=== PATIENT | female | born 2000 | race Caucasian/White ===

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

== ENCOUNTER 2020-10-07 08:00 | Emergency (ER) | payer OTHER ==
[2020-10-07] MEDS ORDERED: KETOROLAC TROMETHAMINE INJ 30 MG/ML VIAL IV ONE (08:23)
[2020-10-07] MEDS ORDERED: SODIUM CHLORIDE 0.9% (FLUSH) 10 ML SYG IV PRN (08:23)
[2020-10-07] MEDS ORDERED: ONDANSETRON INJ 4 MG/2 ML VIAL IV ONE (08:23)
[2020-10-07] MEDS ORDERED: SODIUM CHLORIDE 0.9% 1000ML 1,000 ML IVS ONE (08:23)
--- NOTE | 2020-10-07 08:53 | ED.PDOC ---
History of Present Illness - General Chief Complaint: Abdominal Pain Stated Complaint: RLQ abdominal pain Time Seen by Provider: 10/07/20 08:23 Source: patient, RN notes reviewed, Vital Signs reviewed Exam Limitations: no limitations - History of Present Illness Initial Comments: Patient is a 20-year-old white female who presents with complaints of right lower quadrant pain that started last night. Pain is sharp and throbbing. Moderate intensity. Worse with movement or palpation. Better with resting supine. No radiation of the pain. Timing/Duration: other - 12 hrs Severity: moderate Improving Factors: rest Worsening Factors: movement, other - palpation Associated Symptoms: denies symptoms Allergies/Adverse Reactions: Allergies NO KNOWN ALLERGY Allergy (Verified 10/07/20 09:13) Home Medications: Ambulatory Orders Etonogestrel-Ethinyl Estradiol [Nuvaring] 1 mis [place] MONTHLY 03/29/19 Cyclobenzaprine HCl [Flexeril] 10 mg PO TID PRN #20 tab 06/09/19 Ketorolac Tromethamine [Toradol Tabs] 10 mg PO Q6HRS PRN #16 tab 06/09/19 Cephalexin Monohydrate [Keflex] 500 mg PO BID #10 cap 07/03/19 Ondansetron [Ondansetron Odt] 4 mg PO Q6H #12 tab 10/07/20 Review of Systems - Review of Systems Constitutional: States: no symptoms reported, see HPI. Denies: chills, fever, malaise, weakness EENTM: States: no symptoms reported. Denies: eye pain, blurred vision, double vision Respiratory: States: no symptoms reported. Denies: cough, short of breath, stridor, wheezing Cardiology: States: no symptoms reported. Denies: chest pain, palpitations, syncope Gastrointestinal/Abdominal: States: see HPI, abdominal pain, nausea. Denies: diarrhea, vomiting Genitourinary: States: no symptoms reported. Denies: discharge, dysuria, frequency Musculoskeletal: States: no symptoms reported. Denies: back pain, joint pain, joint swelling, neck pain Skin: States: no symptoms reported. Denies: change in color, rash Neurological: States: no symptoms reported. Denies: tingling, tremors, weakness Endocrine: States: no symptoms reported. Denies: increased hunger, increased thirst, increased urine Hematologic/Lymphatic: States: no symptoms reported. Denies: blood clots, easy bleeding All other Systems: Reviewed and Negative Past Medical History (General) - Patient Medical History Hx Stroke: No Hx Dementia: No Hx Asthma: No Hx of COPD: No Hx Cardiac Disorders: No Hx Congestive Heart Failure: No Hx Hypertension: No Hx Thyroid Disease: No Hx Diabetes: No Hx Cancer: No - Vaccination History Hx Tetanus, Diphtheria Vaccination: No Hx Influenza Vaccination: No Hx Pneumococcal Vaccination: No - Social History Hx Tobacco Use: No - Vapes Hx Alcohol Use: Yes - socially Hx Substance Use: No Hx Substance Use Treatment: No Hx Depression: No - Female History Patient : No Family Medical History - Family History Mother Family History: Unknown Father Grandparents Hx Family Diabetes: Yes - Type II Physical Exam - Physical Exam General Appearance: Alert, Anxious, Well Developed, Well Groomed, Well Hydrated, Well Nourished Eye Exam: bilateral normal Ears, Nose, Throat: hearing grossly normal, normal ENT inspection, normal pharynx Neck: non-tender, full range of motion, supple Respiratory: chest non-tender, lungs clear, normal breath sounds, no respiratory distress Cardiovascular/Chest: normal peripheral pulses, regular rate, rhythm, no edema, no gallop, no JVD, no murmur Peripheral Pulses: radial,right: 2+, radial,left: 2+ Gastrointestinal/Abdominal: normal bowel sounds, soft, tenderness - RLQ Back Exam: normal inspection, no CVA tenderness, no vertebral tenderness Extremity: normal range of motion, non-tender, normal inspection, no pedal edema, no calf tenderness 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 10/07/20 11:29 Patient is improved while here. She is tolerating p.o. CT scan does not show any appendicitis or kidney stones. Labs are unremarkable and do not show any sign of infection. Plan on discharge home with follow-up with PCP. Have recommended patient take the day off from work and rest and drink plenty of fluids. I discussed the plan of care with the patient she voices understanding and agreement. Slava Cooley M.D. #[id number] - Results/Orders Results/Orders: EKG performed 07 October 2020 at 0841 hrs.: Sinus rhythm with marked sinus arrhythmia at 67 bpm, normal axis deviation, no ST or T wave depression concerning for ischemia, otherwise normal EKG. 10/07/20 08:23 Hold Metformin x 48Hrs [id number] Sodium Chloride 0.9% (Flush) [Saline Flush Syringe] 10 ml IV PRN PRN 10/07/20 08:30 EKG STAT Laboratory Results - last 24 hr 10/07/20 10/07/20 10/07/20 08:30 08:30 08:30 WBC 6.6 RBC 4.53 Hgb 13.3 Hct 39.3 MCV 86.7 MCH 29.4 MCHC 33.9 RDW 12.7 Plt Count 243 MPV 9.5 Absolute Neuts (auto) 3.70 Absolute Lymphs (auto) 2.10 Absolute Monos (auto) 0.50 Absolute Eos (auto) 0.20 Absolute Basos (auto) 0.10 Neutrophils % 56.7 Lymphocytes % 31.7 Monocytes % 7.2 Eosinophils % 3.1 Basophils % 1.3 Sodium 139 Potassium 4.0 Chloride 107 Carbon Dioxide 23 Anion Gap 13.0 BUN 17 Creatinine 0.64 BUN/Creatinine Ratio 26.6 H Random Glucose 101 Serum Osmolality 279.2 Calcium 8.5 Total Bilirubin 0.6 Direct Bilirubin 0.1 Indirect Bilirubin 0.5 AST 14 ALT 17 Alkaline Phosphatase 43 L Serum Total Protein 7.4 Albumin 3.8 Lipase 31 Serum HCG, Qual Negative Urine Color Urine Appearance Urine pH Ur Specific [place] Urine Protein Urine Glucose (UA) Urine Ketones Urine Blood Urine Nitrite Urine Bilirubin Urine Urobilinogen Ur Leukocyte Esterase Urine RBC Urine WBC Ur Epithelial Cells Urine Bacteria 10/07/20 10:15 WBC RBC Hgb Hct MCV MCH MCHC RDW Plt Count MPV Absolute Neuts (auto) Absolute Lymphs (auto) Absolute Monos (auto) Absolute Eos (auto) Absolute Basos (auto) Neutrophils % Lymphocytes % Monocytes % Eosinophils % Basophils % Sodium Potassium Chloride Carbon Dioxide Anion Gap BUN Creatinine BUN/Creatinine Ratio Random Glucose Serum Osmolality Calcium Total Bilirubin Direct Bilirubin Indirect Bilirubin AST ALT Alkaline Phosphatase Serum Total Protein Albumin Lipase Serum HCG, Qual Urine Color Yellow Urine Appearance Clear Urine pH 6.0 Ur Specific [place] 1.015 Urine Protein Negative Urine Glucose (UA) Negative Urine Ketones Negative Urine Blood Negative Urine Nitrite Negative Urine Bilirubin Negative Urine Urobilinogen 0.2 Ur Leukocyte Esterase Negative Urine RBC 0 Urine WBC 0-1 Ur Epithelial Cells 0-1 Urine Bacteria 0 Vital Signs 10/07/20 10/07/20 10/07/20 08:15 08:23 10:43 Temperature 97.7 F Pulse Rate [ 83 83 68 Pulse ox] Respiratory 18 18 16 Rate Blood Pressure 140/89 110/76 [L arm] O2 Sat by Pulse 98 98 Oximetry Departure - Departure Clinical Impression: Abdominal pain Qualifiers: Abdominal location: right lower quadrant Qualified Code(s): R10.31 - Right lower quadrant pain Time of Disposition: Disposition: Discharge to Home or Self Care Condition: Good Departure Forms: ED Discharge - Pt. Copy, Patient Portal Self Enrollment Instructions: DI for Abdominal Pain-Adult, Acute Abdomen (Belly Pain), Adult (DC) Diet: full liquid diet Activity: increase activity as tolerated Prescriptions: Ondansetron [Ondansetron Odt] 4 mg PO Q6H #12 tab Home Medications: Ambulatory Orders Etonogestrel-Ethinyl Estradiol [Nuvaring] 1 mis [place] MONTHLY 03/29/19 Cyclobenzaprine HCl [Flexeril] 10 mg PO TID PRN #20 tab 06/09/19 Ketorolac Tromethamine [Toradol Tabs] 10 mg PO Q6HRS PRN #16 tab 06/09/19 Cephalexin Monohydrate [Keflex] 500 mg PO BID #10 cap 07/03/19 Ondansetron [Ondansetron Odt] 4 mg PO Q6H #12 tab 10/07/20
[2020-10-07 09:13] VITALS: TEMP 97.7; O2SAT 98
--- NOTE | 2020-10-07 09:53 | CT ---
EXAM DESCRIPTION: Abdomen/Pelvis w/Contrast CLINICAL HISTORY: 20 years Female, RLQ pain COMPARISON: 03 July 2019 TECHNIQUE: Transaxial images were obtained with intravenous contrast medium without oral contrast media. Sagittal and coronal reconstruction was performed.This exam was performed according to our departmental dose-optimization program, which includes automated exposure control, adjustment of the mA and/or kV according to patient size and/or use of iterative reconstruction technique. FINDINGS: The lung bases are clear. The liver and spleen are unremarkable. No biliary ductal dilatation is observed. The gallbladder is normal in appearance. No adrenal masses are detected. The pancreas is normal in appearance. Imaging of the kidneys reveals no evidence of hydronephrosis mass cyst or calcification. No free fluid is observed. No inguinal region abnormality is detected. The uterus and adnexa are unremarkable. No bone abnormality is seen. IMPRESSION: Normal computerized axial tomography of the abdomen pelvis. Electronically signed by: Jose Vazquez MD 10/07/2020 9:51 AM CRYSTAL EVALUATOR
[2020-10-07 12:08] VITALS: BP 116/74
== END 2020-10-07 12:06 | disposition home or self-care (01) ==
LOC: ER 08:00
DX: R10.31 Right lower quadrant pain (principal); I49.9 Cardiac arrhythmia, unspecified; R11.0 Nausea; Z79.899 Other long term (current) drug therapy; Z87.891 Personal history of nicotine dependence
CPT/HCPCS: 36415; 74177; 80048; 80076; 81001; 83690; 84703; 85025; 93005; J1885; J2405; J7030

== ENCOUNTER 2020-11-09 17:06 | Emergency (ER) | payer OTHER ==
[2020-11-09 17:20] VITALS: TEMP 98.1
--- NOTE | 2020-11-09 17:20 | ED.PDOC ---
History of Present Illness - General Chief Complaint: Abdominal Pain Stated Complaint: abdominal pain Time Seen by Provider: 11/09/20 17:14 Information Source: patient, RN notes reviewed, Vital Signs reviewed Additional Information: This is a 20-year-old female, presenting to the ER because of abdominal pain, patient stated the pain started today, points of the midepigastric area but now migrating towards the upper umbilical area, patient had some food with high fat content, patient denies any dysuria no previous abdominal surgery last menstrual period was about a week ago patient is G1, P0 Denies any drugs social drinker and she vapes - History of Present Illness Abdominal Pain Onset Location: epigastric, periumbilical Pain Radiation: RLQ Quality: cramping Timing/Duration: intermittent Improving Factors: nothing Worsening Factors: nothing Associated Symptoms: denies symptoms Review of Systems - Review of Systems Constitutional: States: no symptoms reported EENTM: States: no symptoms reported Respiratory: States: no symptoms reported Cardiology: States: no symptoms reported Gastrointestinal/Abdominal: States: abdominal pain Genitourinary: States: no symptoms reported Musculoskeletal: States: no symptoms reported Skin: States: no symptoms reported Neurological: States: no symptoms reported Endocrine: States: no symptoms reported Hematologic/Lymphatic: States: no symptoms reported Past Medical History (General) - Patient Medical History Hx Stroke: No Hx Dementia: No Hx Asthma: No Hx of COPD: No Hx Cardiac Disorders: No Hx Congestive Heart Failure: No Hx Hypertension: No Hx Thyroid Disease: No Hx Diabetes: No Hx Cancer: No - Vaccination History Hx Tetanus, Diphtheria Vaccination: No Hx Influenza Vaccination: No Hx Pneumococcal Vaccination: No - Social History Hx Tobacco Use: No - Vapes Hx Alcohol Use: Yes - socially Hx Substance Use: No Hx Substance Use Treatment: No Hx Depression: No - Female History Patient : No Family Medical History - Family History Mother Family History: Unknown Hx Family Hypertension: Yes Father Grandparents Living Status: Still Living Hx Family Hypertension: Yes Hx Family Diabetes: Yes - Type II Physical Exam - Physical Exam General Appearance: Well Developed, Well Groomed, Well Hydrated Eyes, Ears, Nose, Throat Exam: PERRL/EOMI, normal ENT inspection, TMs normal Neck: non-tender, full range of motion, supple, normal inspection Respiratory: chest non-tender, lungs clear, normal breath sounds, no respiratory distress, no accessory muscle use, respiratory distress Cardiovascular/Chest: normal peripheral pulses, regular rate, rhythm, no edema, no gallop, no JVD, no murmur Peripheral Pulses: No deficit Gastrointestinal/Abdominal: guarding - mid epigastric pain and periumbillical with rmild right lower quadrant pain , rebound, tenderness Male Genitalia: normal genitalia Back Exam: normal inspection, no CVA tenderness, no vertebral tenderness Extremity: normal range of motion, non-tender, normal inspection, no pedal edema, no calf tenderness 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 This patient home with Zofran, and instructions to return to the ER immediately if there is any severe right lower quadrant pain back pain diarrhea bloody stools unwanted weight loss dysuria painful urination blood in the urine unwanted weight loss decreased oral intake unable to holding fluids down or any other concerns 11/09/20 18:28 Not appear in any distress prior to discharge 11/09/20 18:36 Departure - Departure Clinical Impression: Epigastric abdominal pain Disposition: Discharge to Home or Self Care Condition: Fair Departure Forms: ED Discharge - Pt. Copy, Patient Portal Self Enrollment Instructions: DI for Abdominal Pain-Adult, Severe Abdominal Pain Diet: full liquid diet, low fat, low cholesterol Prescriptions: Dicyclomine HCl [Bentyl] 20 mg PO Q6HRS #20 tab Ondansetron HCl [Zofran] 4 mg PO Q6HRS #20 tab Famotidine [Pepcid] 20 mg PO DAILY #20 tab Home Medications: Ambulatory Orders Dicyclomine HCl [Bentyl] 20 mg PO Q6HRS #20 tab 11/09/20 Famotidine [Pepcid] 20 mg PO DAILY #20 tab 11/09/20 Ondansetron HCl [Zofran] 4 mg PO Q6HRS #20 tab 11/09/20 Additional Instructions: Return to the ER immediately if there is any severe right lower quadrant pain back pain diarrhea bloody stools unwanted weight loss dysuria painful urination blood in the urine unwanted weight loss decreased oral intake unable to holding fluids down or any other concerns
--- NOTE | 2020-11-09 18:21 | CT ---
EXAM: Abdomen/Pelvis w/Contrast CLINICAL INDICATION: Right lower quadrant abdominal pain COMPARISON: 10/07/2020 TECHNIQUE: The CT scan was done using contiguous axial 5 mm postcontrast sections through the abdomen and pelvis including IV contrast. This exam was performed according to our departmental dose-optimization program, which includes automated exposure control, adjustment of the mA and/or kV according to patient size and/or use of iterative reconstruction technique. FINDINGS: The visualized portions of the lung bases are clear. The liver, gallbladder, kidneys, adrenal glands, spleen, and pancreas have a normal CT appearance. The aorta is normal in caliber. The appendix is normal. There are no dilated loops of small bowel. There is no free air, free fluid, or abscess. A simple left ovarian cyst is noted measuring 3.5 x 2.7 cm, almost certainly benign for which no imaging follow-up is recommended. IMPRESSION: No evidence of an acute intra-abdominal process. Electronically signed by: Harvinder Stewart MD 11/09/2020 6:20 PM BODY WIRER
[2020-11-09 18:46] VITALS: BP 121/89; O2SAT 94
== END 2020-11-09 18:47 | disposition home or self-care (01) ==
LOC: ER 17:06
DX: R10.13 Epigastric pain (principal)